=== PATIENT | male | born 1945 | race Caucasian/White ===

== ENCOUNTER 2016-09-12 06:45 | Observation (INO) | payer OTHER ==
[2016-09-12] MEDS ORDERED: Sodium Chloride 0.9% 1,000 ML IV STA (07:32)
[2016-09-12 07:39] VITALS: RESP 18
--- NOTE | 2016-09-12 07:44 | ED PDOC ---
Syncope/Near Syncope/Dizzyness Time Seen by Provider: 09/12/16 07:31 Chief Complaint (Nursing): Syncope Chief Complaint (Provider): Syncope History Per: Patient History/Exam Limitations: no limitations Onset/Duration Of Symptoms: Hrs (prior to arrival ) Current Symptoms Are (Timing): Better Additional Complaint(s): 74 y/o male presents to the emergency department via paramedics after found unresponsiveness in the hallway of his apt building prior to arrival. Patient given narcan 2mg in the field with no sign of change. Became more arousable on route to the hospital and has no recollection of event. Denies headache, chest pain, or dizziness. PMD: Dr. Yung Coburn Past Medical History Reviewed: Historical Data, Nursing Documentation, Vital Signs Vital Signs: Last Vital Signs Temp 98.1 F 09/12/16 07:34 Pulse 99 H 09/12/16 07:34 Resp 18 09/12/16 07:34 BP 179/91 H 09/12/16 07:34 Pulse Ox 99 09/12/16 07:34 - Family History Family History: States: Unknown Family Hx - Allergies Allergies/Adverse Reactions: Allergies Allergy/AdvReac Type Severity Reaction Status Date / Time No Known Allergies Allergy Verified 09/12/16 07:31 Review of Systems ROS Statement: Except As Marked, All Systems Reviewed And Found Negative Cardiovascular: Negative for: Chest Pain Neurological: Negative for: Headache, Dizziness Physical Exam - Reviewed Nursing Documentation Reviewed: Yes Vital Signs Reviewed: Yes - Physical Exam Appears: Positive for: Well, Non-toxic, No Acute Distress Head Exam: Positive for: ATRAUMATIC, NORMOCEPHALIC Skin: Positive for: Normal Color, Warm, Dry Neck: Positive for: Normal, Supple Cardiovascular/Chest: Positive for: Regular Rate, Rhythm. Negative for: Murmur Respiratory: Positive for: Normal Breath Sounds. Negative for: Accessory Muscle Use, Respiratory Distress Gastrointestinal/Abdominal: Positive for: Normal Exam, Soft. Negative for: Tenderness Extremity: Positive for: Normal ROM. Negative for: Pedal Edema, Swelling Neurologic/Psych: Positive for: Alert, Oriented - Laboratory Results Result Diagrams: 09/12/16 08:22 09/12/16 08:22 - ECG O2 Sat by Pulse Oximetry: 99 (RA) Pulse Ox Interpretation: Normal Medical Decision Making Medical Decision Making: Time: 7:31 Initial plan: --VBG Shock Panel --Head w.o contrast CT --Electrocardiogram Stat --Alcohol Serum Stat --COMP Metaolic Panel --Drug Screen, Urine Stat --ED Urine Dipstick (POC) Stat --EKG-ED (EDNURTX) stat --CBC w/ differential --Chest Two Views (PA/LAT) (RAD) --Sodium Chloride 1,000 mls 100 mls/hr --Blood Culture stat --Revaluation Time: 8:48 --Head CT FINDINGS: HEMORRHAGE: No intracranial hemorrhage. BRAIN: No mass effect or edema. No atrophy or chronic microvascular ischemic changes. VENTRICLES: Unremarkable. No hydrocephalus. CALVARIUM: Unremarkable. PARANASAL SINUSES: Complete opacification of the visualized portion of the right maxillary sinus associated with wall thickening suggestive of chronic sinusitis. MASTOID AIR CELLS: Unremarkable as visualized. No inflammatory changes. OTHER FINDINGS: None. IMPRESSION: No evidence of acute intracranial hemorrhage intracranial collection mass effect or midline shift. Complete opacification of the right maxillary sinus associated with wall thickening suggestive of chronic sinusitis. Scribe Attestation: Documented by Marisa Langley, acting as a scribe for Roberto Carlos Butler MD. Provider Scribe Attestation: All medical record entries made by the Scribe were at my direction and personally dictated by me. I have reviewed the chart and agree that the record accurately reflects my personal performance of the history, physical exam, medical decision making, and the department course for this patient. I have also personally directed, reviewed, and agree with the discharge instructions and disposition. Disposition - Clinical Impression Clinical Impression: Syncope - Patient ED Disposition Is Patient to be Admitted: Yes - Disposition Disposition Time: 09:55 Condition: FAIR - Pt Status Changed To: Hospital Disposition Of: Observation - POA Present On Arrival: None
[2016-09-12 08:35] LABS: VENOUS BLOOD GAS BASE EXCESS 1.7 mmol/L (0.0-2.0); VENOUS BLOOD GAS PCO2 73 mmHg (40-60); VENOUS BLOOD PH 7.24 (7.32-7.43)
[2016-09-12 08:41] LABS: BASO % 0.7 % (0.0-2.0); EOS # 0.2 K/uL (0.0-0.7); EOS % 3.1 % (0.0-4.0); LYMPH % 15.7 % (20.0-40.0); MEAN CELL VOLUME 98.6 fl (80.0-94.0); MEAN CORPUSCULAR HEMOGLOBIN 32.5 pg (27.0-31.0); MEAN PLATELET VOLUME 10.4 fl (7.2-11.7); MONO # 0.6 K/uL (0.0-0.8); MONO % 9.9 % (0.0-10.0); NEUT # 4.3 K/uL (1.8-7.0); NEUT % 70.6 % (50.0-75.0); NRBC % 0.1 % (0.0-0.0); RED CELL DISTRIBUTION WIDTH 13.3 % (11.5-14.5); WHITE BLOOD COUNT 6.2 K/uL (4.8-10.8)
[2016-09-12 08:47] LABS: ALB/GLOB RATIO 0.9 (1.0-2.1); ALCOHOL SERUM < 10 mg/dl (0-10); ALKALINE PHOSPHATASE 69 U/L (38-126); ALT/SGPT 93 U/L (21-72); AST/SGOT 89 U/L (17-59); BILIRUBIN,TOTAL 0.7 mg/dl (0.2-1.3); BLOOD UREA NITROGEN 25 mg/dl (9-20); CALCIUM 8.4 mg/dL (8.4-10.2); CARBON DIOXIDE 21 mmol/L (22-30); CHLORIDE 106 mmol/L (98-107); GFR AFRICAN-AMERICAN > 60; GLUCOSE,RANDOM 256 mg/dL (75-110); POTASSIUM 4.4 MMOL/L (3.6-5.0); SODIUM 140 mmol/l (132-148); TOTAL PROTEIN 8.6 G/DL (6.3-8.2)
--- NOTE | 2016-09-12 08:49 | CT ---
PROCEDURE: CT HEAD WITHOUT CONTRAST. HISTORY: r/o bleed COMPARISON: None available. TECHNIQUE: Axial computed tomography images were obtained through the head/brain without intravenous contrast. Radiation dose: Total exam DLP = 1235.27 mGy-cm. This CT exam was performed using one or more of the following dose reduction techniques: Automated exposure control, adjustment of the mA and/or kV according to patient size, and/or use of iterative reconstruction technique. FINDINGS: HEMORRHAGE: No intracranial hemorrhage. BRAIN: No mass effect or edema. No atrophy or chronic microvascular ischemic changes. VENTRICLES: Unremarkable. No hydrocephalus. CALVARIUM: Unremarkable. PARANASAL SINUSES: Complete opacification of the visualized portion of the right maxillary sinus associated with wall thickening suggestive of chronic sinusitis. MASTOID AIR CELLS: Unremarkable as visualized. No inflammatory changes. OTHER FINDINGS: None. IMPRESSION: No evidence of acute intracranial hemorrhage intracranial collection mass effect or midline shift. Complete opacification of the right maxillary sinus associated with wall thickening suggestive of chronic sinusitis.
--- NOTE | 2016-09-12 10:09 | RAD ---
HISTORY: syncope COMPARISON: No prior. TECHNIQUE: Chest PA and lateral FINDINGS: LUNGS: [id number] hyperinflation of the lungs noted. Slightly prominent lung markings are also noted. PLEURA: No significant pleural effusion identified. No pneumothorax apparent. CARDIOVASCULAR: Normal. OSSEOUS STRUCTURES: No significant abnormalities. VISUALIZED UPPER ABDOMEN: Normal. OTHER FINDINGS: None. IMPRESSION: No active disease. Hyperinflation of the lungs suspicious for COPD.
--- NOTE | 2016-09-12 10:17 | CARD ---
APPROVED REPORT EKG Measurement Heart [id number] <Conclusion> Normal sinus rhythm Nonspecific ST abnormality Abnormal ECG
--- NOTE | 2016-09-12 10:39 | CP.PCM.HP ---
History of Present Illness - History of Present Illness History of Present Illness: Hospitalist Admission H&P (Patient was seen and examined at 10:00 AM 09/12/16 ER Bed #7) PMD: Dr. Coburn. Patient states that he was examined by his PMD in [place] roughly 6 months ago for a Well Exam and everything was ok and then he his insurance changed and he moved and has yet to make an appointment with Dr. Coburn. CODE STATUS: FULL CODE. NO living will/advance directive. Designates Brother Bin Briceno [phone] as his Health Care Proxy. 71 year old male who was brought into the [facility] ER earlier this morning by EMS with a chief complaint of Syncope. Patient explains that he woke up around 3:30 AM this morning realizing that he had not placed his garbage outside for pickup. He therefore got his garbage ready and walked out into the hallway of his apartment complex. Walking in the hallway is the last thing he remembers and he does NOT recall any chest pain, palpitations, lightheadedness, dizziness , headache, shortness of breath, diaphoresis. The next thing he remembers is being surrounded by EMS personal in the hallway. He states that he did not lose bowel/bladder control. This has never happened to him before. ER Physician Dr. Butler explained that EMS gave patient Narcan but he did not respond and became more awake en route to ER. Currently patient is AAOx3, knows what happened to him, and is no distress. 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, selling clothes, factory), Lives alone, (+) Tobacco 3 to 4 cigarettes per day for the past 40 years, (+) Alcohol: used to drink heavily as a young man but for the past 25 years he has 1 to 2 bears daily with last beer at 11:30 AM , NO illicit drugs Family Hx: Mom ( at 84 as she was bed bound for unknown reason), Dad ( in his late 70s for unknown reason), Brother and Sister (does not know history but states he is in touch with them and they do not complain about anything), Daughter (healthy) Present on Admission - Present on Admission Any Indicators Present on Admission: Yes History of DVT/PE: No History of Uncontrolled Diabetes: No Urinary Catheter: No Decubitus Ulcer Present: No Review of Systems - Review of Systems Review of Systems: Please see HPI Past Patient History - Past Medical History & Family History Pertinent Family History: Please see HPI - Past Social History Smoking Status: Light Smoker < 10 Cigarettes Daily - PSYCHIATRIC Hx Substance Use: No - ANESTHESIA Hx Anesthesia: No Meds Allergies/Adverse Reactions: Allergies Allergy/AdvReac Type Severity Reaction Status Date / Time No Known Allergies Allergy Verified 09/12/16 07:31 Physical Exam - Constitutional Appears: Non-toxic, No Acute Distress - Head Exam Head Exam: ATRAUMATIC, NORMAL INSPECTION, NORMOCEPHALIC - Eye Exam Eye Exam: EOMI, Normal appearance, PERRL Pupil Exam: NORMAL ACCOMODATION, PERRL - ENT Exam ENT Exam: Mucous Membranes Moist, Normal Exam, Normal External Ear Exam, Normal Oropharynx Additional comments: POOR DENTITION - Neck Exam Neck exam: Positive for: Normal Inspection Additional comments: NO CERVICAL/SUPERCLAVICULAR/SUBMANDIBULAR LYMPHADENOPATHY NO THYROMEGALY (+) LEFT CAROTID BRUIT - Respiratory Exam Respiratory Exam: Clear to Auscultation Bilateral, NORMAL BREATHING PATTERN Additional comments: CTA B/L NO R/R/W - Cardiovascular Exam Cardiovascular Exam: REGULAR RHYTHM, +S1, +S2 Additional comments: NO M/R/G - GI/Abdominal Exam GI & Abdominal Exam: Normal Bowel Sounds, Soft Additional comments: BSX4, SOFT, NT, ND, NO HSM, NO GUARDING/REBOUND TENDERNESS - Extremities Exam Extremities exam: Positive for: normal inspection Additional comments: NO EDEMA PULSES ARE STRONG AND EQUAL CAPILLARY REFILL IS 2 SECONDS NO CYANOSIS - Neurological Exam Neurological exam: Alert, CN II-XII Intact, Oriented x3 Additional comments: 5/5 STRENGTH WITH FLEXION AND EXTENSION OF THE BILATERAL UE AND LE 2/4 DTR BILATERAL UE AND LE RHOMBERG IS NORMAL BABINSKI IS NORMAL - Psychiatric Exam Psychiatric exam: Normal Affect, Normal Mood - Skin Skin Exam: Dry, Intact, Normal Color, Warm Results - Vital Signs Recent Vital Signs: Last Vital Signs Temp 98.1 F 09/12/16 07:34 Pulse 99 H 09/12/16 07:34 Resp 18 09/12/16 07:34 BP 179/91 H 09/12/16 07:34 Pulse Ox 99 09/12/16 09:55 - Labs Result Diagrams: 09/12/16 08:22 09/12/16 08:22 Assessment & Plan (1) Syncope Assessment and Plan: Place on Observation in the Telemetry Unit Troponin at 11 AM, 6 PM, and Midnight F/U Vitamin B12, Folate, RPR, TSH, T4 F/U 2D Echocardiogram F/U STAT D-Dimer F/U Bilateral Carotid U/S F/U Repeat EKG as although the first showed NSR, it was a poor study F/U Orthostatic Vital Signs F/U UDS F/U further recommendations from Consult Neurology Dr. Ayesha Calhoun Status: Acute (2) Elevated random blood glucose level Assessment and Plan: Blood Glucose upon presentation was 256 Patient states that he is NOT diabetic and that workup 6 months ago by his former doctor was "everything fine" F/U HgBA1C F/U Lipids F/U TSH, T4 Regular Insulin Sliding Scale for now Accuchecks ACHS If HgBA1C elevated then start on oral hypoglycemic, statin, and FAHAD I Status: Acute (3) Elevated LFTs Assessment and Plan: AST and ALT elevated at 89 and 93, respectively This could be secondary to the long history of daily Alcohol use: heavy drinker 25 years ago and currently 1 to 2 beers a day with last drink at 11:30 AM Monitor LFTs Status: Acute (4) Elevated blood pressure reading Assessment and Plan: In the ER upon presentation blood pressure was 179/91 and heart rate 99. Monitor for now and if needed add FAHAD I Status: Acute (5) Prophylactic measure Assessment and Plan: Protonix 40 mg PO 1x/day for GI Prophylaxis Heparin 5,000 Units SQ Q12H and Bilateral SCDs for DVT Prophylaxis Heart Healthy Low Carb 2 gm Na diet Follow up 09/13/16 Labs Status: Acute
[2016-09-12] MEDS ORDERED: Pantoprazole 40 mg EC Tab PO SCH (11:00)
[2016-09-12] MEDS ORDERED: Pantoprazole 40 mg EC Tab PO ONE (11:00)
[2016-09-12] MEDS ORDERED: Sodium Chloride 0.9% 50 ML IV ONE (16:55)
[2016-09-12] MEDS ORDERED: Iodixanol 320 MG/ML 100 ML BOTTLE IV ONE (16:55)
--- NOTE | 2016-09-12 18:16 | CT ---
PROCEDURE: CT Chest with contrast (Pulmonary Angiogram) HISTORY: Elevated D-Dimer and Syncope COMPARISON: None available. TECHNIQUE: Axial computed tomography images were obtained of the chest in the pulmonary arterial phase of enhancement. Coronal and sagittal reformatted images were created and reviewed. Intravenous contrast dose: 100 cc of Omnipaque 300 Radiation dose: Total exam DLP = 235 mGy-cm. This CT exam was performed using one or more of the following dose reduction techniques: Automated exposure control, adjustment of the mA and/or kV according to patient size, and/or use of iterative reconstruction technique. FINDINGS: PULMONARY ARTERIES: Unremarkable. No pulmonary embolism. AORTA: No acute findings. No thoracic aortic aneurysm. LUNGS: Biapical pleural parenchymal fibronodular changes observed. 4 millimeter subpleural nodule in the left upper lobe (series 5, image 44). PLEURAL SPACES: Unremarkable. No effusion or pneuomothorax. HEART: Unremarkable. No cardiomegaly. No significant pericardial effusion. LYMPH NODES: No lymphadenopathy. BONES, CHEST WALL: Unremarkable. No fracture or destructive lesion OTHER FINDINGS: Unremarkable. IMPRESSION: No pulmonary embolus. 4 millimeter nodule in the left upper lobe for which follow-up is recommended.
--- NOTE | 2016-09-12 18:22 | US ---
Bilateral lower extremity venous Doppler exam 09/12/2016. History: Elevated D-dimer. Syncope. . Duplex interrogation of the deep veins of the right and left lower extremities performed in standard fashion. No prior study available for comparison. Findings: The the visualized deep veins of the right and left lower extremities exhibit normal flow, compressibility augmentation without evidence of DVT. Impression: No evidence of DVT seen within the visualized deep veins of the right or left lower extremities.
[2016-09-12] MEDS: Insulin Regular 100 units/ml SC SCH ×2 (18:52→22:00)
[2016-09-12 20:07] VITALS: BP 115/63; PULSE 68; TEMP 98.8; O2SAT 100
--- NOTE | 2016-09-12 21:28 | CON ---
DATE: 09/12/2016 REASON FOR CONSULTATION: Episode of passing out. HISTORY OF PRESENT ILLNESS: The patient is a 71-year-old male who was admitted after he had an episo de of passing out. The patient woke up around 3:30 a.m. in the morning and realized that he did not place his garbage outside for pickup, so he walked into the hallway of the apartment and after that h e does not remember what happened. The next thing he knows he was surrounded by EMS. The patient ap parently passed out. He did not have any bowel or bladder incontinence. He never passed out before. The patient said he has not been in the hospital for quite a while and has no significant medical p roblems. REVIEW OF SYSTEMS: He denies any headache, dizziness, chest pain, shortness of breath, abdominal renzo n, constipation, diarrhea, dysuria, pyuria, cough, sputum production. PAST MEDICAL HISTORY: None. MEDICATIONS AT HOME: None. ALLERGIES: No known drug allergies. SOCIAL HISTORY: He does smoke cigarettes, does drink alcohol of 1-2 beers daily. He denies the use of any illicit drugs. FAMILY HISTORY: Reviewed and noncontributory to the case. PHYSICAL EXAMINATION: GENERAL: The patient is an elderly pleasant male lying on the bed, in no acute distress. VITAL SIGNS: His blood pressure is 118/61, heart rate is 72 per minute, breathing at a rate of 16 pe r minute, temperature is 97.8 degrees Fahrenheit. HEENT: Head is normocephalic, atraumatic. NECK: Supple. There are no carotid bruits. LUNGS: Clear. CARDIOVASCULAR: S1, S2 audible. No murmurs. ABDOMEN: Soft, nontender. Bowel sounds present. NEUROLOGIC EXAMINATION: MENTAL STATUS: The patient is awake, alert, oriented to time, place, person. Speech is fluent. Nam ing and repetition normal. Memory and cognition are intact. CRANIAL NERVES: Pupils are 3 mm bilaterally and reactive to light. Visual sheffield are full. Extraoc ular movements are intact. There is no facial asymmetry. He is moving all 4 extremities symmetrical ly. Power appears to 5/5 bilaterally in all extremities. Reflexes +2 and symmetrical. Plantars neville ngoing bilaterally. CEREBELLAR: [id number] shows no dysmetria. GAIT: Deferred at the moment. LABORATORY DATA: Labs reviewed, shows WBC of 6.2, hemoglobin 13.9, hematocrit 42.0 and platelets of 155. Sodium is 140, potassium 4.4, chloride 106, carbon dioxide 21, BUN of 25, creatinine 0.6 and gl ucose of 256. His urine toxicology is positive for opiates. He had a CT scan of the head done which shows no evidence of acute intracranial hemorrhage, intracranial collection, mass effect or midline shift. IMPRESSION: Status post possible syncope. Did rule out seizure with his cardiac arrhythmias. RECOMMENDATIONS: 1. The patient to have MRI of the brain without contrast. 2. The patient also to have an electroencephalogram. 3. The patient to have physical therapy for gait imbalance. 4. Please continue other treatment and supportive care. Thank you for the opportunity to participate in the care of this patient. Yuliana Calhoun MD cc: [id number] TT: 09/12/2016 21:27:12 Confirmation # [id number] Dictation # [id number] mn
--- NOTE | 2016-09-13 10:36 | CARD ---
APPROVED REPORT EXAM: Two-dimensional and M-mode echocardiogram with Doppler and color Doppler. Other Information Quality : AverageRhythm : NSR Technically limited study due to smoking. INDICATION Syncope 2D DIMENSIONS IVSd0.93 (0.7-1.1cm)LVDd3.87 (3.9-5.9cm) LVOT Diameter2.21 (1.8-2.4cm)PWd0.95 (0.7-1.1cm) IVSs1.49 (0.8-1.2cm)LVDs2.49 (2.5-4.0cm) FS (%) 35.7 %PWs1.49 (0.8-1.2cm) M-Mode DIMENSIONS Left Atrium (MM)4.47 (2.5-4.0cm)IVSd1.24 (0.7-1.1cm) Aortic Root2.71 (2.2-3.7cm)LVDd4.85 (4.0-5.6cm) Aortic Cusp Exc.1.85 (1.5-2.0cm)PWd1.09 (0.7-1.1cm) IVSs1.56 cmFS (%) 54 % LVDs2.24 (2.0-3.8cm)PWs1.79 cm Mitral Valve E/A ratio0.0 TDI E/Lateral E'0.0E/Medial E'0.0 LEFT VENTRICLE The left ventricle is normal size. There is normal left ventricular wall thickness. The left ventricular function is normal. The left ventricular ejection fraction is within the normal range. The Ejection Fraction is 60-65%. There is normal LV segmental wall motion. The left ventricular diastolic function is normal. No left ventricle thrombus noted on this study. There is no mass noted in the left ventricle. RIGHT VENTRICLE The right ventricle is normal size. There is normal right ventricular wall thickness. The right ventricular systolic function is normal. ATRIA The left atrium size is normal. The right atrium size is normal. The interatrial septum is intact with no evidence for an atrial septal defect. AORTIC VALVE The aortic valve is normal in structure and function. No aortic regurgitation is present. There is no aortic valvular stenosis. There is no aortic valvular vegetation. MITRAL VALVE The mitral valve is normal in structure and function. There is no evidence of mitral valve prolapse. There is no mitral valve stenosis. Mitral regurgitation is trace to mild. TRICUSPID VALVE The tricuspid valve is normal in structure and function. There is no tricuspid valve regurgitation noted. There is no tricuspid valve prolapse or vegetation. There is no tricuspid valve stenosis. PULMONIC VALVE The pulmonary valve is normal in structure and function. There is no pulmonic valvular regurgitation. There is no pulmonic valvular stenosis. GREAT VESSELS The aortic root is normal in size. The IVC is normal in size and collapses >50% with inspiration. PERICARDIAL EFFUSION The pericardium appears normal. There is no pleural effusion. <Conclusion> The left ventricle is normal size. The left ventricular function is normal. The left ventricular ejection fraction is within the normal range. The Ejection Fraction is 60-65%. Mitral regurgitation is trace to mild.
--- NOTE | 2016-09-13 15:07 | US ---
PROCEDURE: Duplex ultrasound of the carotid and vertebral arteries 09/13/2016. . HISTORY: Carotid bruit. Syncope. COMPARISON: None available. TECHNIQUE: Grayscale and duplex Doppler evaluation of the cervical carotid and vertebral arteries were performed. The common carotid, carotid bifurcations and cervical ICA and proximal ECA were evaluated. The vertebral arteries were evaluated for gross patency and direction. FINDINGS: RIGHT CAROTID ARTERIES: There is mild intimal thickening in the left common carotid artery. Moderate to fairly significant partially calcified atherosclerotic plaque seen within the right carotid bifurcation and extending distally into the proximal aspect right internal carotid artery . Maximal right CCA velocity = 90.9 cm/S Maximal right ICA velocity = 96.4 cm/s. ICA/CCA Ratio: 1.0 LEFT CAROTID ARTERIES: Minor intimal thickening within the left common carotid artery Moderate partially calcified atherosclerotic plaque also noted within the distal left common carotid artery/bifurcation Maximal CCA velocity = 111.9 cm/s. Maximal ICA velocity = 94.8 cm/s. ICA/CCA Ratio: 1.1 VERTEBRAL ARTERIES: Right Vertebral Artery: Patent. Antegrade flow. Left Vertebral Artery: Patent. Antegrade flow. OTHER FINDINGS: None. IMPRESSION: Atherosclerotic plaque changes seen within the distal common carotid arteries, bifurcations and proximal internal carotid arteries as above. Consider followup CTA of the neck to assess percent diameter stenosis
== END 2016-09-12 22:20 | disposition left against medical advice (07) ==
LOC: H.ER 07:20 → EDBD 07:20 → H.ERHOLD 09:56 → H.TEL 12:35
PROVIDERS: ADMIT Family Medicine; ATTEND Family Medicine
DX: R55 Syncope and collapse (principal); M79.662 Pain in left lower leg; F17.210 Nicotine dependence, cigarettes, uncomplicated; R73.02 Impaired glucose tolerance (oral); R03.0 Elevated blood-pressure reading, without diagnosis of hypertension; R79.89 Other specified abnormal findings of blood chemistry
CPT/HCPCS: 70450; 71020; 71275; 80053; 82803; 82948; 83036; 84484; 85025; 85378; 87040; 93005; 93306; 93880; 93970; 96372; 99284; G0378; G0480; J1644; J7040; Q9967

== ENCOUNTER 2017-10-31 18:15 | Emergency (ER) | payer OTHER ==
[2017-10-31 18:19] VITALS: BP 144/78; PULSE 88; RESP 16; TEMP 98; O2SAT 99
--- NOTE | 2017-10-31 19:46 | ED PDOC ---
Lower Extremity Pain/Injury Time Seen by Provider: 10/31/17 18:20 Chief Complaint (Nursing): Lower Extremity Problem/Injury History Per: Patient History/Exam Limitations: no limitations Additional Complaint(s): 72-year-old male presents to ED for evaluation of right foot pain. Pt states earlier today, he was in the shower and was standing on left foot while holding right foot on air where he fell down and struck right foot to ground. Denies head trauma, other injury, loss of consciousness. PMD: Yung Coburn Past Medical History Reviewed: Historical Data, Nursing Documentation, Vital Signs Vital Signs: Last Vital Signs Temp 98.0 F 10/31/17 18:16 Pulse 88 10/31/17 18:16 Resp 16 10/31/17 18:16 BP 144/78 10/31/17 18:16 Pulse Ox 99 10/31/17 18:16 - Medical History PMH: No Chronic Diseases - Surgical History Surgical History: No Surg Hx - Family History Family History: States: Unknown Family Hx - Home Medications Home Medications: Ambulatory Orders Medication Instructions Recorded Tramadol HCl [Ultram] 50 mg PO BID PRN #10 tablet 10/31/17 - Allergies Allergies/Adverse Reactions: Allergies Allergy/AdvReac Type Severity Reaction Status Date / Time No Known Allergies Allergy Verified 10/31/17 18:16 Review of Systems ROS Statement: Except As Marked, All Systems Reviewed And Found Negative Musculoskeletal: Positive for: Foot Pain (right) Neurological: Negative for: Other (loss of consciousness) Physical Exam - Reviewed Nursing Documentation Reviewed: Yes Vital Signs Reviewed: Yes - Physical Exam Pulses-Dorsalis Pedis (R): 2+ Extremity: Positive for: Capillary Refill (less than 2 seconds), Other ((+) Mild tenderness and swelling to dorsal of right foot) - ECG O2 Sat by Pulse Oximetry: 99 (RA) Pulse Ox Interpretation: Normal Medical Decision Making Medical Decision Making: Time: 18:41 Plan: - Tylenol 325 mg Tab - Right Foot X-Ray Time: 19:43 Plan: - CT Ext Lower w/o Contrast Right as requested by Dr. Sood (last pattern grader) ------- Time: 21:22 CT Right Lower Extremity Without Intravenous Contrast, Foot FINDINGS: Bones/joints: Displaced fractures of the necks of the second and third metatarsals. Degenerative changes tibiotalar joint. No dislocation. Soft tissues: Soft tissue edema around the distal foot. No radiopaque foreign body. Small calcification within the plantar fascia which is a benign finding. IMPRESSION: 1. Displaced fractures of the necks of the second and third metatarsals. 2. Soft tissue edema around the distal foot. ------- Pt. evaluated by Dr. Sood, podiatry resident, who discussed case with Dr. Guy and splinted pt. in ED. Outpatient f/u arrangements made. Scribe Attestation: Documented by Santo Redmond, acting as a scribe for Jerel Banda PA-C Provider Scribe Attestation: All medical record entries made by the Scribe were at my direction and personally dictated by me. I have reviewed the chart and agree that the record accurately reflects my personal performance of the history, physical exam, medical decision making, and the department course for this patient. I have also personally directed, reviewed, and agree with the discharge instructions and disposition. Disposition - Clinical Impression Clinical Impression: Foot fracture - Patient ED Disposition Is Patient to be Admitted: No - Disposition Referrals: Podiatry Clinic [Outside] Altaf Guy DPM [Medical Doctor] - Disposition: Routine/Home Disposition Time: 22:00 Condition: STABLE Additional Instructions: Follow up with podiatry clinic or Dr. Guy for further evaluation. Return to ED immediately if symptoms worsen. Prescriptions: Tramadol HCl [Ultram] 50 mg PO BID PRN #10 tablet PRN Reason: Other Instructions: Foot Fracture (DC) Forms: [employer] (Djiboutian) Print Language: FIJIAN
--- NOTE | 2017-10-31 23:54 | CP.PCM.CON ---
History of Present Illness - History of Present Illness History of Present Illness: Podiatry Consult Note- Dr. Guy 72 y.o male with no PMH seen and evaluated in the ED for right foot pain. Patient reports that he fell in the shower and hit his right foot. Patient reports injury occuring around 2pm. Patient describes the pain as a throbbing pain to the right foot. Denies ankle pain. Rates the pain 10/10 on VAS scale. Denies numbness or tingling. Denies nausea, fever, shortness of breath, chest pains or chills. Denies calf pain or tenderness. PMH: denies PSH: denies ALL: NKDA FH: denies SH: 2-3 cigarettes for 50 years, drinks EtOH socially, denies illicit drug use MEDS: see MAR list Past Patient History - Past Social History Smoking Status: Light Smoker < 10 Cigarettes Daily - PSYCHIATRIC Hx Substance Use: No - SURGICAL HISTORY Hx Surgeries: No - ANESTHESIA Hx Anesthesia: No Meds Home Medications: Home Medication List Medication Instructions Recorded Confirmed Type Tramadol HCl [Ultram] 50 mg PO BID PRN #10 tablet 10/31/17 Rx Allergies/Adverse Reactions: Allergies Allergy/AdvReac Type Severity Reaction Status Date / Time No Known Allergies Allergy Verified 09/12/16 07:31 Physical Exam - Constitutional Appears: Well, Non-toxic, No Acute Distress - Extremities Exam Extremities exam: Negative for: calf tenderness Additional comments: Right lower extremity focused examination: VASC: DP and PT 2/4 bilaterally, CFT < 3 seconds x10 digits, nonpitting edema noted to the entire forefoot, greater on the dorsum of the forefoot right foot ORTHO: pain with palpation to the 2nd metatarsal head and along the 2nd metatarsal shaft to midfoot, pain with palpation to the 3rd metatarsal head and along 3rd metatarsal shaft to the midfoot, generalized pain to the medial aspect of the right foot, deferred manual muscle testing secondary to guarding, AROM to digits, able to wiggle toes, able to passively dorsiflex and plantarflex ankle NEURO: gross and protective sensation intact, no numbness or tingling DERM: no open lesions, erythema secondary to trauma noted to the dorsum of the right forefoot, no clinical signs of infection, no blister fractures noted, no ecchymosis appreciated at this time - Neurological Exam Neurological exam: Alert, Oriented x3 - Psychiatric Exam Psychiatric exam: Normal Affect, Normal Mood Results - Vital Signs Recent Vital Signs: Last Vital Signs Temp 98.0 F 10/31/17 18:16 Pulse 88 10/31/17 18:16 Resp 16 10/31/17 18:16 BP 144/78 10/31/17 18:16 Pulse Ox 99 10/31/17 21:46 Assessment & Plan - Assessment and Plan (Free Text) Assessment: 72 y.o male with right foot 2nd metatarsal and 3rd metatarsal neck fractures secondary to fall Plan: Patient examined and evaluated Discussed plan in detail with attending Dr. Guy X-rays viewed- read by me 2nd metatarsal neck fracture noted to right foot with no displacement noted, 3rd metatarsal neck fracture of the right foot with displacement noted to the distal fragment: laterally displaced with shortening appreciated Pak compression and posterior splint applied Patient to be NWB with crutches/ambulatory device Instructed RICE protocol CT ordered- reviewed Spoke to patient. Patient will likely need surgical intervention with ORIF of left foot fracture Will f/u with Dr. Guy in 1 week in office or podiatry clinic Thank you for allowing us to participate in patient's care
--- NOTE | 2017-11-01 10:16 | RAD ---
PROCEDURE: Right Foot Radiographs. HISTORY: trauma COMPARISON: None. FINDINGS: BONES: Minimally displaced oblique fractures of the 2nd and 3rd metatarsal necks. JOINTS: Normal. SOFT TISSUES: Normal. OTHER FINDINGS: None. IMPRESSION: Minimally displaced fractures of the 2nd and 3rd metatarsal necks.
--- NOTE | 2017-11-01 12:24 | CT ---
CT: RIGHT LOWER EXTREMITY WITHOUT CONTRAST HISTORY: TRAUMA COMPARISON: None TECHNIQUE: Multiple contiguous axial images were performed through the pertinent right footwithout the use of intravenous contrast. Subsequently, sagittal and coronal reformatted images were obtained. This CT exam was performed using one or more of the following dose reduction techniques: Automated exposure control, adjustment of the mA and/or kV according to patient size, and/or use of iterative reconstruction technique. FINDINGS: Through the distal neck of the 2nd metatarsal a a acute fracture is noted. There is no significant appearing displacement here suggested. Some trace overriding of the fractured cortical aunts is present. No intra-articular extension suggested. At a similar level but affecting the 3rd distal metatarsal neck a mildly displaced mildly comminuted fracture here is noted. No intra-articular extension here seen. 1st metatarsal joint space narrowing -osteoarthrosis Mild accessory ossifications centers bordering the cuboid bone inferiorly is noted. Os peroneum inferred. There is areas of relative increased sclerosis involving the 4th metatarsal base - healing of a prior fracture here subacute to chronic in appearing is inferred. No significant appearing residual fracture line here appreciated. Some increased sclerosis of the cortices here suggested. And this similar increased sclerosis of the 5th metatarsal base and shaft with cortical slight thickening in cortical hyperostoses sclerosis here also suggested. Healed prior fractures of these last more proximal 4th and 5th metatarsals is inferred. Partially visualize are arthro pathic like subcortical cystic changes at the confluence of the talus tibial and fibula IMPRESSION: Acute 2nd and 3rd metatarsal neck fractures. The 3rd metatarsal neck fracture is mildly comminuted and mildly displaced.Concordant results (preliminary interpretation) provided by [facility]. Regarding the section The additional sclerotic changes inferred as healing of more chronic appearing fractures (no significant residual fracture lines now appreciate) involving the 4th and 5th metatarsals are added to the initial [facility] report No dislocation. . Arthropathic changes
== END 2017-10-31 22:19 | disposition home or self-care (01) ==
LOC: MERGE 18:15 → H.ER 18:15
DX: S92.901A Unspecified fracture of right foot, initial encounter for closed fracture (principal); W19.XXXA Unspecified fall, initial encounter; Y93.E1 Activity, personal bathing and showering